=== PATIENT | female | born 1960 | race Caucasian/White ===

== ENCOUNTER 2016-05-02 01:12 | Emergency (ER) | payer MEDICARE ==
[2016-05-02 01:30] VITALS: O2SAT 96
[2016-05-02] MEDS ORDERED: Phenergan 25 MG INJ IM ONE (01:34)
[2016-05-02] MEDS ORDERED: Hydromorphone 1 mg/ml Ampule IM ONE (01:34)
[2016-05-02] MEDS ORDERED: Phenergan 25 MG INJ ONE (01:40)
--- NOTE | 2016-05-02 01:40 | ERPHSYRPT ---
- History of Present Illness Time Seen by Provider: 05/02/16 01:22 Source: patient Exam Limitations: no limitations Physician History: SINCE 04/29/16 PT HAS HAD A CONSTANT 10/10 THROBBING RIGHT SIDED HEADACHE WITH NAUSEA, VOMITING X3, PHOTOPHOBIA AND PHONOPHOBIA. PT'S NEUROLOGIST IS DR COX IN [place]. Allergies/Adverse Reactions: No Known Drug Allergies Allergy (Verified 06/11/14 19:57) Home Medications: Bupropion HCl [Wellbutrin Xl] 300 mg PO DAILY 03/02/14 [History] Butorphanol Tartrate 2 mg [Stadol 2 mg] 0 mg UD 03/02/14 [History] Omeprazole [Prilosec] 40 mg PO DAILY 03/02/14 [History] Torsemide [Demadex] 20 mg PO WEEKLY 03/02/14 [History] Gabapentin 600 mg PO QPM 06/11/14 [History] Hx Tetanus, Diphtheria Vaccination/Date Given: Yes (2012) Hx Influenza Vaccination/Date Given: No Hx Pneumococcal Vaccination/Date Given: No - Review of Systems Constitutional: No Fever Eyes: Photophobia Ears, Nose, & Throat: Other (PHONOPHOBIA) Respiratory: No Dyspnea Cardiac: No Chest Pain Abdominal/Gastrointestinal: Nausea, Vomiting, No Abdominal Pain Neurological: Headache Endocrine: No Excessive Sweating All Other Systems: Reviewed and Negative - Past Medical History Pertinent Past Medical History: Yes (sarcoidosis, migraine headaches) Cardiac History: Arrhythmia Respiratory History: Other Endocrine Medical History: Diabetes Type II Musculoskeletal History: Osteoarthritis, Rheumatoid Arthritis Other Medical History: SARCOIDOSIS - Past Surgical History Past Surgical History: Yes Neuro Surgical History: Neurological Surgery Cardiac: Cardiac Catheterization, Pacemaker Respiratory: Other Gastrointestinal: Cholecystectomy Female Surgical History: Section, Hysterectomy Other Surgical History: BRAIN SURGERY, PIECE OF LEFT LOWER LUNG REMOVAL, PACEMAKER PLACEMENT,LIVER BIOPSY, 3 ARM SURGERIES,6 PORTS PUT IN AND REMOVED. gastric bypassadhesion - Social History Smoking Status: Former smoker Exposure to second hand smoke: No Drug Use: none Patient Lives Alone: Yes - Female History Hx Now: No - Nursing Vital Signs Nursing Vital Signs: Initial Vital Signs Temperature 98.1 F Temperature Source Oral Pulse Rate 68 Respiratory Rate 16 Blood Pressure [Right Arm] 133/69 Pain Intensity 10 - Physical Exam General Appearance: moderate distress, alert Eye Exam: photophobia, other (EOMI) Ears, Nose, Throat Exam: TMs normal, pharynx normal, moist mucous membranes Neck Exam: normal inspection Respiratory Exam: lungs clear Cardiovascular Exam: normal heart sounds Gastrointestinal/Abdominal Exam: soft, normal bowel sounds Back Exam: normal range of motion Extremity Exam: normal inspection, normal range of motion Mental 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 POST-SURGICAL CHANGES IN THE LEFT FRONTAL-PARIETAL REGION. NO CT EVIDENCE OF DISCRETE MASS IDENTIFIED TO CORRESPOND TO HISTORY.) Ordered Tests: Active Orders 24 hr Category Date Time Status HEAD WITHOUT CONTRAST [CT] Stat Exams 05/02/16 01:34 Taken Medication Summary Discontinued Medications Generic Name Dose Route Start Last Admin Trade Name Iain PRN Reason Stop Dose Admin Hydromorphone HCl 2 mg 05/02/16 01:34 05/02/16 01:46 Dilaudid 1 Mg/Ml Injection IM 05/02/16 01:35 2 mg STAT ONE Administration Hydromorphone HCl Confirm 05/02/16 01:41 Dilaudid 1 Mg/Ml Injection Administered 05/02/16 01:42 Dose 2 mg .ROUTE .STK-MED ONE Promethazine HCl 25 mg 05/02/16 01:34 05/02/16 01:46 Phenergan 25 Mg Inj IM 05/02/16 01:35 25 mg STAT ONE Administration Promethazine HCl Confirm 05/02/16 01:40 Phenergan 25 Mg Inj Administered 05/02/16 01:41 Dose 25 mg .ROUTE .STK-MED ONE - Departure Time of Disposition: 03:06 Departure Disposition: Home Clinical Impression: MIGRAINE HEADACHE Condition: Fair Critical Care Time: No Instructions: Headache Additional Instructions: FOLLOW UP WITH PRIVATE DOCTOR TOMORROW.
[2016-05-02] MEDS ORDERED: Hydromorphone 1 mg/ml Ampule ONE (01:41)
[2016-05-02] MEDS ORDERED: TORAdol 30 mg Injection IM ONE (03:03)
[2016-05-02] MEDS ORDERED: TORAdol 30 mg Injection ONE (03:07)
[2016-05-02 03:45] VITALS: BP 110/81; PULSE 67
--- NOTE | 2016-05-02 09:00 | XRAY ---
Indication: Right frontal headache, dizziness, and right eye blurry vision. Multiple contiguous axial images obtained through the head without contrast. Comparison: November 15, 2009. Ventriculosulcal pattern appears symmetric. No acute intracranial hemorrhage, abnormal extra-axial fluid collection, or mass effect. Fourth ventricle is midline without hydrocephalus. Atkinson-white matter differentiation preserved. Bony calvarium intact again with left vertex craniotomy. Visualized paranasal sinuses and mastoid air cells are clear. Impression: No new/acute intracranial abnormalities. Comment: Preliminary interpretation was made by [facility]. No discrepancy. CTDI 67.99
== END 2016-05-02 03:40 | disposition home or self-care (01) ==
LOC: ED 01:12
DX: G43.909 Migraine, unspecified, not intractable, without status migrainosus (principal); R11.2 Nausea with vomiting, unspecified; H53.149 Visual discomfort, unspecified; R61 Generalized hyperhidrosis
CPT/HCPCS: 70450; 96372; 99283; J1170; J1885; J2550

== ENCOUNTER 2016-07-31 20:04 | Inpatient (IN) | payer MEDICARE ==
[2016-07-31] MEDS ORDERED: Sodium Chloride 0.9% 1000 ML 1,000 ML IV STA (20:23)
[2016-07-31] MEDS ORDERED: Hydromorphone 1 mg/ml Ampule IV ONE (20:23)
[2016-07-31] MEDS ORDERED: BENADRYL 50 MG/ML IV ONE (20:23)
[2016-07-31] MEDS ORDERED: Pepcid 20 MG VIAL IV ONE ×2 (20:23→20:27)
[2016-07-31] MEDS ORDERED: BENADRYL 50 MG/ML ONE (20:26)
[2016-07-31] MEDS ORDERED: Sodium Chloride 0.9% 1000 ML 1,000 ML ONE (20:27)
[2016-07-31] MEDS ORDERED: Hydromorphone 1 mg/ml Ampule ONE (20:27)
--- NOTE | 2016-07-31 20:31 | ERPHSYRPT ---
- History of Present Illness Time Seen by Provider: 07/31/16 20:16 Historian: patient Patient Subjective Stated Complaint: states that she ate at [employer] at 1200 and began to have RUQ abd pain intermittently with pressure - states that it began to radiate under the ribs - states that she feels like there is now constant pressure that is causing nausea - states that now she is having contractions-type pain Triage Nursing Assessment: ambulatory to treatment area - slow steady gait - moves all extremities with equal strength. alert/oriented - grimmacing affect. skin pwd - no rash/injury. resps easy - non-labored Physician History: CC: abd pain Hx: 55 y/o patient of Dr Cason with right sided abdominal pain since around 2PM. Ate [employer] at noon. Pain was intermittent but now more constant. Nausea without vomiting or diarrhea. No fever or chills. Normal urination. No cough or chest pain. She had prior cholecystectomy, hysterectomy, and gastric bypass. Timing/Duration: today Severity of Pain-Max: moderate Severity of Pain-Current: moderate Allergies/Adverse Reactions: No Known Drug Allergies Allergy (Verified 07/31/16 20:09) Home Medications: Bupropion HCl [Wellbutrin Xl] 300 mg PO DAILY 03/02/14 [History] Butorphanol Tartrate 2 mg [Stadol 2 mg] 0 mg UD 03/02/14 [History] Omeprazole [Prilosec] 40 mg PO DAILY 03/02/14 [History] Gabapentin 600 mg PO QPM 06/11/14 [History] Hx Tetanus, Diphtheria Vaccination/Date Given: Yes Hx Influenza Vaccination/Date Given: No Hx Pneumococcal Vaccination/Date Given: No Immunizations Up to Date: Yes - Review of Systems Constitutional: No Fever, No Chills Eyes: No Symptoms Ears, Nose, & Throat: No Symptoms Respiratory: No Cough Cardiac: No Chest Pain Abdominal/Gastrointestinal: Abdominal Pain, Nausea, No Vomiting, No Diarrhea Genitourinary Symptoms: No Dysuria, No Hematuria, No Flank Pain Skin: No Rash Neurological: No Symptoms All Other Systems: Reviewed and Negative - Past Medical History Pertinent Past Medical History: Yes (sarcoidosis, migraine headaches) Cardiac History: Arrhythmia Respiratory History: Other Endocrine Medical History: Diabetes Type II Musculoskeletal History: Osteoarthritis, Rheumatoid Arthritis GI Medical History: Esophageal Disorder Other Medical History: SARCOIDOSIS - WEAVER'S ESOPHAGOUS - Past Surgical History Past Surgical History: Yes Neuro Surgical History: Neurological Surgery Cardiac: Cardiac Catheterization, Pacemaker Respiratory: Other Gastrointestinal: Cholecystectomy Female Surgical History: Section, Hysterectomy Other Surgical History: BRAIN SURGERY, PIECE OF LEFT LOWER LUNG REMOVAL, PACEMAKER PLACEMENT,LIVER BIOPSY, 3 ARM SURGERIES,6 PORTS PUT IN AND REMOVED. gastric bypassadhesion - Social History Smoking Status: Never smoker Exposure to second hand smoke: No Drug Use: none Patient Lives Alone: No - Female History Hx Last Menstrual Period: n/a Hx Now: No - Nursing Vital Signs Nursing Vital Signs: Initial Vital Signs Temperature 99.4 F Temperature Source Oral Pulse Rate 70 Respiratory Rate 14 Blood Pressure [Right Arm] 99/50 Pain Intensity 0 - Physical Exam General Appearance: alert, other (pleasant lady) Eye Exam: PERRL/EOMI Ears, Nose, Throat Exam: normal ENT inspection, moist mucous membranes Neck Exam: normal inspection, non-tender, supple Respiratory Exam: normal breath sounds, lungs clear Cardiovascular Exam: regular rate/rhythm Gastrointestinal/Abdomen Exam: soft, tenderness (right mid and lower abdomen), guarding, No mass Back Exam: normal inspection, No CVA tenderness Extremity Exam: normal inspection, normal range of motion Neurologic Exam: alert, oriented x 3, 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, 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, sensation nml, No motor deficits Skin Exam: warm, dry, No rash SpO2 Interpretation: normal SpO2: 98 Oxygen Delivery: Room Air - Course Nursing assessment & vital signs reviewed: Yes EKG Interpreted by Me: RATE (66), Other (atrial pacemaker) Ordered Tests: Active Orders 24 hr Category Date Time Status Clean Catch Urine Specimen STAT Care 07/31/16 20:23 Active EKG-ER Only STAT Care 07/31/16 20:23 Active IV Insertion STAT Care 07/31/16 20:23 Active NPO (ED) STAT Care 07/31/16 20:23 Active ABDOMEN AND PELVIS W CONTRAST [CT] Stat Exams 07/31/16 20:23 Taken CBC W DIFF Stat Lab 07/31/16 20:30 Completed CMP Stat Lab 07/31/16 20:30 Completed CULTURE,URINE Stat Lab 07/31/16 20:20 Received LIPASE Stat Lab 07/31/16 20:30 Completed Lactic Acid Urgent Lab 07/31/16 20:23 Completed Manual Differential NC Stat Lab 07/31/16 20:30 Completed UA W/ MICROSCOPIC Stat Lab 07/31/16 20:15 Completed Medication Summary Discontinued Medications Generic Name Dose Route Start Last Admin Trade Name Iain PRN Reason Stop Dose Admin Diphenhydramine HCl 25 mg 07/31/16 20:23 07/31/16 20:32 Benadryl 50 Mg/Ml IV 07/31/16 20:24 25 mg STAT ONE Administration Diphenhydramine HCl Confirm 07/31/16 20:26 Benadryl 50 Mg/Ml Administered 07/31/16 20:27 Dose 50 mg .ROUTE .STK-MED ONE Famotidine 20 mg 07/31/16 20:23 07/31/16 20:32 Pepcid 20 Mg Vial IV 07/31/16 20:24 20 mg STAT ONE Administration Famotidine Confirm 07/31/16 20:27 Pepcid 20 Mg Vial Administered 07/31/16 20:28 Dose 20 mg IV .STK-MED ONE Hydromorphone HCl 1 mg 07/31/16 20:23 07/31/16 20:33 Hydromorphone 1 Mg/Ml Ampule IV 07/31/16 20:24 1 mg STAT ONE Administration Hydromorphone HCl Confirm 07/31/16 20:27 Hydromorphone 1 Mg/Ml Ampule Administered 07/31/16 20:28 Dose 1 mg .ROUTE .STK-MED ONE Sodium Chloride 1,000 mls @ 999 mls/hr 07/31/16 20:23 07/31/16 20:33 Sodium Chloride 0.9% 1000 Ml IV 07/31/16 21:23 999 mls/hr .Q1H1M STA Administration Sodium Chloride Confirm 07/31/16 20:27 Sodium Chloride 0.9% 1000 Ml Administered 07/31/16 20:28 Dose 1,000 mls @ ud .ROUTE .STK-MED ONE Ondansetron HCl 4 mg 07/31/16 21:36 07/31/16 21:41 Zofran 4 Mg/2 Ml Vial IV 07/31/16 21:37 4 mg STAT ONE Administration Ondansetron HCl Confirm 07/31/16 21:39 Zofran 4 Mg/2 Ml Vial Administered 07/31/16 21:40 Dose 4 mg .ROUTE .STK-MED ONE Lab/Rad Data: Laboratory Result Diagrams 07/31/16 20:30 07/31/16 20:30 Laboratory Results 07/31/16 07/31/16 07/31/16 Range/Units 20:30 20:30 20:23 WBC 5.7 (4.0-10.5) K/mm3 RBC 4.31 (4.1-5.4) M/mm3 Hgb 12.6 (12.0-16.0) gm/dl Hct 38.7 (35-47) % MCV 89.8 (78-100) fl MCH 29.2 (26-32) pg MCHC 32.6 (32-36) g/dl RDW 13.3 (11.5-14.0) % Plt Count 176 (150-450) K/mm3 MPV 9.6 H (6-9.5) fl Segmented Neutrophils 85 H (36.0-66.0) % Lymphocytes (Manual) 8 L (24-44) % Monocytes (Manual) 5 (0.0-12.0) % Eosinophils (Manual) 2 (0.00-3.0) % Differential Comment NORMAL Platelet Estimate NORMAL (NORMAL) Sodium 142 (136-145) mEq/L Potassium 4.5 (3.5-5.1) mEq/L Chloride 105 (98-107) mEq/L Carbon Dioxide 27.0 (21-32) mEq/L Anion Gap 14.1 (5-15) MEQ/L BUN 19 (9-20) mg/dL Creatinine 0.80 (0.55-1.30) mg/dl Estimated GFR > 60 ML/MIN Glucose 93 (70-110) MG/DL Lactic Acid 0.7 (0.4-2.0) Calcium 8.3 L (8.5-10.1) mg/dL Total Bilirubin 0.6 (0.2-1.0) mg/dL AST 315 H (15-37) U/L ALT 119 H (12-78) U/L Alkaline Phosphatase 133 H (46-116) U/L Serum Total Protein 7.1 (6.4-8.2) gm/dL Albumin 3.6 (3.4-5.0) g/dL Lipase 255 (73-393) U/L Ur Collection Type Urine Color (YELLOW) Urine Appearance (CLEAR) Urine pH (5-6) Ur Specific [place] (1.005-1.025) Urine Protein (Negative) Urine Glucose (UA) (NEGATIVE) mg/dL Urine Ketones (NEGATIVE) Urine Nitrite (NEGATIVE) Urine Bilirubin (NEGATIVE) Urine Urobilinogen (0-1) mg/dL Urine WBC (Auto) (NEGATIVE) Urine RBC (Auto) (0-5) Chema/ul Urine Microscopic WBC (0-5) /HPF Ur Epithelial Cells (FEW) /HPF Urine Bacteria (NEGATIVE) /HPF Specimen Received 07/31/16 Range/Units 20:15 WBC (4.0-10.5) K/mm3 RBC (4.1-5.4) M/mm3 Hgb (12.0-16.0) gm/dl Hct (35-47) % MCV (78-100) fl MCH (26-32) pg MCHC (32-36) g/dl RDW (11.5-14.0) % Plt Count (150-450) K/mm3 MPV (6-9.5) fl Segmented Neutrophils (36.0-66.0) % Lymphocytes (Manual) (24-44) % Monocytes (Manual) (0.0-12.0) % Eosinophils (Manual) (0.00-3.0) % Differential Comment Platelet Estimate (NORMAL) Sodium (136-145) mEq/L Potassium (3.5-5.1) mEq/L Chloride (98-107) mEq/L Carbon Dioxide (21-32) mEq/L Anion Gap (5-15) MEQ/L BUN (9-20) mg/dL Creatinine (0.55-1.30) mg/dl Estimated GFR ML/MIN Glucose (70-110) MG/DL Lactic Acid (0.4-2.0) Calcium (8.5-10.1) mg/dL Total Bilirubin (0.2-1.0) mg/dL AST (15-37) U/L ALT (12-78) U/L Alkaline Phosphatase (46-116) U/L Serum Total Protein (6.4-8.2) gm/dL Albumin (3.4-5.0) g/dL Lipase (73-393) U/L Ur Collection Type CLEAN CATCH Urine Color YELLOW (YELLOW) Urine Appearance SLIGHTLY CLOUDY (CLEAR) Urine pH 5.5 (5-6) Ur Specific [place] 1.025 (1.005-1.025) Urine Protein NEGATIVE (Negative) Urine Glucose (UA) NEGATIVE (NEGATIVE) mg/dL Urine Ketones NEGATIVE (NEGATIVE) Urine Nitrite POSITIVE (NEGATIVE) Urine Bilirubin NEGATIVE (NEGATIVE) Urine Urobilinogen 0.2 (0-1) mg/dL Urine WBC (Auto) TRACE (NEGATIVE) Urine RBC (Auto) NEGATIVE (0-5) Chema/ul Urine Microscopic WBC 2-5 (0-5) /HPF Ur Epithelial Cells FEW (FEW) /HPF Urine Bacteria PACKED (NEGATIVE) /HPF Specimen Received 07/31/16:2020 - Progress Progress Note: 07/31/16 20:[address] to rule out appendicitis or perforated ulcer. 07/31/16 22:21 CT abd/pelvis: [email or web address] 9:56 PM 07/31/2016: Compared to 04/15/14. Stable small HH, gastric bypass sx, B/L adrenal adenomas w / calcifications, cholecystectomy w/ prominent biliary tree, nonobstructing R renal stone, small L renal cyst, small fatty umbilical hernia, & multilevel lumbar hemangiomas. No new/acute findings. 07/31/16 23:33 Ptambulated. Holding right abd. She has profound nausea. CT reassuring. She states liver enzymes always high as a result of sarcoid. She agrees for obs. Spoke to Dr Cason. Will see patient in: hospital (observation) Counseled pt/family regarding: lab results, diagnosis, need for follow-up, rad results - Departure Time of Disposition: 23:34 Departure Disposition: Observation Clinical Impression: RLQ abdominal pain, Hx of sarcoidosis Condition: Stable Critical Care Time: No Referrals: KUNAL CASON MD [Primary Care Provider] -
[2016-07-31 20:39] LABS: Mean Cell Volume 89.8 fl (78-100); Mean Corpuscular Hemoglobin 29.2 pg (26-32); Mean Platelet Volume 9.6 fl (6-9.5); Platelet Count 176 K/mm3 (150-450); Red Blood Count 4.31 M/mm3 (4.1-5.4); Red Cell Distribution Width 13.3 % (11.5-14.0); White Blood Count 5.7 K/mm3 (4.0-10.5)
[2016-07-31 20:48] LABS: Bacteria PACKED /HPF (NEGATIVE); COMPLETE URINE MICROSCOPIC? YES; Collection Type CLEAN CATCH; Epithelial Cells FEW /HPF (FEW); Ph 5.5 (5-6)
[2016-07-31 21:03] LABS: ALBUMIN 3.6 g/dL (3.4-5.0); ALKALINE PHOSPHATASE 133 U/L (46-116); ANION GAP 14.1 MEQ/L (5-15); BILIRUBIN,TOTAL 0.6 mg/dL (0.2-1.0); BLOOD UREA NITROGEN 19 mg/dL (9-20); CHLORIDE 105 mEq/L (98-107); Glucose 93 MG/DL (70-110); LIPASE 255 U/L (73-393); Potassium 4.5 mEq/L (3.5-5.1); SGOT/AST 315 U/L (15-37); SGPT/ALT 119 U/L (12-78); SODIUM 142 mEq/L (136-145); Total Protein 7.1 gm/dL (6.4-8.2)
[2016-07-31] MEDS ORDERED: Zofran 4 MG/2 ML VIAL IV ONE (21:36)
[2016-07-31] MEDS ORDERED: Zofran 4 MG/2 ML VIAL ONE (21:39)
[2016-07-31 22:39] LABS: Eosinophil 2 % (0.00-3.0); Platelet Estimate NORMAL (NORMAL); Total Cells Counted 100
[2016-08-01] MEDS ORDERED: DILAUDID 2 MG INJECTION IV PRN (00:14)
[2016-08-01] MEDS: Dextrose 5%-Lr IV Solution 1000 ML 1,000 ML IV SCH ×3 (00:30→21:52)
[2016-08-01] MEDS: Zofran 4 MG/2 ML VIAL IV PRN ×2 (00:30→10:31)
[2016-08-01] MEDS: DILAUDID 2 MG INJECTION IV PRN ×4 (02:25→21:50)
[2016-08-01 05:54] LABS: Mean Cell Volume 90.6 fl (78-100); Mean Corpuscular Hemoglobin 29.5 pg (26-32); Mean Platelet Volume 9.9 fl (6-9.5); Platelet Count 156 K/mm3 (150-450); Red Blood Count 3.83 M/mm3 (4.1-5.4); Red Cell Distribution Width 13.3 % (11.5-14.0)
[2016-08-01 06:23] LABS: White Blood Count 1.5 K/mm3 (4.0-10.5)
[2016-08-01 07:34] LABS: Mean Cell Volume 89.8 fl (78-100); Mean Corpuscular Hemoglobin 29.5 pg (26-32); Mean Platelet Volume 9.8 fl (6-9.5); Platelet Count 135 K/mm3 (150-450); Red Blood Count 3.83 M/mm3 (4.1-5.4); Red Cell Distribution Width 13.3 % (11.5-14.0)
[2016-08-01 07:37] LABS: White Blood Count 1.6 K/mm3 (4.0-10.5)
[2016-08-01 07:40] LABS: ALBUMIN 3.2 g/dL (3.4-5.0); BLOOD UREA NITROGEN 14 mg/dL (9-20); CHLORIDE 104 mEq/L (98-107); Carbon Dioxide 27.1 mEq/L (21-32); Glucose 125 MG/DL (70-110); Potassium 4.1 mEq/L (3.5-5.1); SODIUM 139 mEq/L (136-145); Total Protein 6.5 gm/dL (6.4-8.2)
[2016-08-01 07:41] LABS: ALKALINE PHOSPHATASE 205 U/L (46-116); ANION GAP 27.1 MEQ/L (5-15); BILIRUBIN,TOTAL 0.5 mg/dL (0.2-1.0); SGOT/AST 1621 U/L (15-37); SGPT/ALT 891 U/L (12-78)
--- NOTE | 2016-08-01 08:38 | XRAY ---
Indication: Right upper quadrant abdominal pain/pressure. Multiple contiguous axial images obtained through the abdomen and pelvis using 80 cc Isovue 370 contrast only. Comparison: April 15, 2014. Lung bases again demonstrates minimal bibasilar dependent atelectasis. Heart is not enlarged. Stable small hiatal hernia. Again previous gastric bypass surgery, cholecystectomy, and hysterectomy. Noncontrasted stomach and bowel loops appear nonobstructed. No free fluid/air. Stable minimal colonic diverticulosis, biliary tree prominence, bilateral adrenal adenomas with calcifications, nonobstructing right renal calculus, small left renal cyst, tiny mesenteric/periaortic lymph nodes, and small fatty umbilical hernia. Remaining liver, pancreas, spleen, kidneys, ureters, bladder, and aorta appear unremarkable. Osseous structures intact again with multilevel lumbar vertebral hemangiomas. Impression: 1. Stable hiatal hernia, cholecystectomy with prominent biliary tree, calcified bilateral adrenal adenomas, colonic diverticulosis, nonobstructing right renal calculus, left renal cyst, tiny mesenteric/periaortic nodes, lumbar vertebral hemangiomas, and fatty umbilical hernia. 2. No new/acute intra-abdominal/pelvic abnormalities. CTDI 23.47
[2016-08-01 10:17] LABS: BAND 1 % (0.0-2.0); Platelet Estimate NORMAL (NORMAL); Total Cells Counted 100
[2016-08-01] MEDS: Pepcid 20 MG VIAL IV SCH ×2 (10:26→21:48)
[2016-08-01] MEDS ORDERED: Nitrostat 0.4 MG Tablet SL PRN (11:30)
[2016-08-01] MEDS ORDERED: NON-FORMULARY ITEM (Omeprazole [Prilosec] 40 MG) PO PRN (11:30)
[2016-08-01] MEDS ORDERED: Protonix 40MG Tablet PO PRN (11:47)
[2016-08-01] MEDS ORDERED: Zanaflex 4 MG PO SCH (12:00)
[2016-08-01] MEDS: Wellbutrin XL 150 MG PO SCH (13:02)
--- NOTE | 2016-08-01 13:20 | PCM.HP ---
History of Present Illness - Chief Complaint Chief Complaint: RLQ abdominal pain for 1 day History of Present Illness: is a 55 year old female.55 y/o patient of Dr Mathew with right sided abdominal pain since around 2PM. Ate veggie sub at noon. Pain was intermittent but now more constant. Nausea without vomiting or diarrhea. No fever or chills. Normal urination. No cough or chest pain. She had prior cholecystectomy, hysterectomy, and gastric bypass. Timing/Duration: today Severity of Pain-Max: moderate Severity of Pain-Current: moderate - Review of Systems Constitutional: No Fever, No Chills Eyes: No Symptoms Ears, Nose, & Throat: No Symptoms Respiratory: No Cough, No Short Of Breath Cardiac: No Chest Pain, No Edema, No Syncope Abdominal/Gastrointestinal: Abdominal Pain, Nausea, No Vomiting, No Diarrhea Genitourinary Symptoms: No Dysuria Musculoskeletal: No Back Pain, No Neck Pain Skin: No Rash Neurological: No Dizziness, No Focal Weakness, No Sensory Changes Psychological: No Symptoms Endocrine: No Symptoms Hematologic/Lymphatic: No Symptoms Immunological/Allergic: No Symptoms Medications & Allergies Home Medications: Home Medication List Bupropion HCl [Wellbutrin Xl] 300 mg PO DAILY 03/02/14 [History Confirmed ] Omeprazole [Prilosec] 40 mg PO BID PRN 03/02/14 [History Confirmed 08/01/16] Nitroglycerin 0.4 mg Tablet [Nitrostat 0.4 MG Tablet] 1 tab PO UD PRN [History Confirmed 08/01/16] Oxcarbazepine 300 mg [Trileptal 300 MG Tablet] 600 mg PO TID 08/01/16 [ History Confirmed 08/01/16] Tizanidine HCl 4 mg [Zanaflex 4 MG] 4 mg PO HS 08/01/16 [History Confirmed 08/01/16] Allergies/Adverse Reactions: Allergies Allergy/AdvReac Type Severity Reaction Status Date / Time No Known Drug Allergies Allergy Verified 07/31/16 20:09 - Past Medical History Past Medical History: Yes (sarcoidosis, migraine headaches) Cardiac History: Arrhythmia Respiratory History: Other Endocrine Medical History: Diabetes Type II Musculoskelatal History: Osteoarthritis, Rheumatoid Arthritis GI Medical History: Esophageal Disorder Comment: SARCOIDOSIS - WEAVER'S ESOPHAGOUS - Female History Hx Last Menstrual Period: n/a Are you now?: No - Past Surgical History Past Surgical History: Yes Neuro Surgical History: Neurological Surgery Cardiac History: Cardiac Catheterization, Pacemaker Respiratory Surgery: Other GI Surgical History: Cholecystectomy Female Surgical History: Section, Hysterectomy Other Surgical History: BRAIN SURGERY, PIECE OF LEFT LOWER LUNG REMOVAL, PACEMAKER PLACEMENT,LIVER BIOPSY, 3 ARM SURGERIES,6 PORTS PUT IN AND REMOVED. gastric bypassadhesion - Social History Smoking Status: Former smoker Exposure to second hand smoke: Yes Alcohol: None Drug Use: none - Physical Exam Vital Signs: Vital Signs - 24 hr Temp Pulse Resp BP Pulse Ox 08/01/16 12:00 97.8 F 71 20 121/77 91 L 08/01/16 07:57 98.5 F 67 18 133/62 90 L 08/01/16 04:00 98.5 F 67 18 115/62 94 L 08/01/16 00:34 98.2 F 69 20 127/78 96 07/31/16 23:34 98 07/31/16 23:31 70 14 99/50 98 07/31/16 23:06 71 14 112/66 96 07/31/16 22:01 68 18 115/71 98 07/31/16 21:37 72 124/72 98 07/31/16 21:09 72 18 123/85 98 07/31/16 20:13 99.4 F 70 16 134/85 98 General Appearance: no apparent distress, alert Neurologic Exam: alert, oriented x 3, cooperative, normal mood/affect, nml cerebellar function, nml station & gait, sensation nml, No motor deficits Eye Exam: PERRL/EOMI, eyes nml inspection Ears, Nose, Throat Exam: normal ENT inspection, TMs normal, pharynx normal, moist mucous membranes Neck Exam: normal inspection, non-tender, supple, full range of motion Respiratory Exam: normal breath sounds, lungs clear, No respiratory distress Cardiovascular Exam: regular rate/rhythm, normal heart sounds, normal peripheral pulses Gastrointestinal/Abdomen Exam: soft, normal bowel sounds, No tenderness, No mass Back Exam: normal inspection, normal range of motion, No CVA tenderness, No vertebral tenderness Extremity Exam: normal inspection, normal range of motion, pelvis stable Skin Exam: normal color, warm, dry, No rash Lymphatic Exam: No adenopathy Results - Labs Lab/Micro Results: Lab Results-Last 24 Hours 08/01/16 08/01/16 08/01/16 Range/Units 05:18 05:18 07:29 WBC 1.5 L* 1.6 L* (4.0-10.5) K/mm3 RBC 3.83 L 3.83 L (4.1-5.4) M/mm3 Hgb 11.3 L 11.3 L (12.0-16.0) gm/dl Hct 34.7 L 34.4 L (35-47) % MCV 90.6 89.8 (78-100) fl MCH 29.5 29.5 (26-32) pg MCHC 32.6 32.8 (32-36) g/dl RDW 13.3 13.3 (11.5-14.0) % Plt Count 156 135 L (150-450) K/mm3 MPV 9.9 H 9.8 H (6-9.5) fl Segmented Neutrophils 65 (36.0-66.0) % Band Neutrophils 1 (0.0-2.0) % Lymphocytes (Manual) 29 (24-44) % Monocytes (Manual) 5 (0.0-12.0) % Differential Comment NORMAL Platelet Estimate NORMAL (NORMAL) Smear Path Review Pending Sodium 139 (136-145) mEq/L Potassium 4.1 (3.5-5.1) mEq/L Chloride 104 (98-107) mEq/L Carbon Dioxide 27.1 (21-32) mEq/L Anion Gap 27.1 H (5-15) MEQ/L BUN 14 (9-20) mg/dL Creatinine 0.81 (0.55-1.30) mg/dl Estimated GFR > 60 ML/MIN Glucose 125 H (70-110) MG/DL Calcium 8.0 L (8.5-10.1) mg/dL Total Bilirubin 0.5 (0.2-1.0) mg/dL AST 1621 H (15-37) U/L ALT 891 H (12-78) U/L Alkaline Phosphatase 205 H (46-116) U/L Serum Total Protein 6.5 (6.4-8.2) gm/dL Albumin 3.2 L (3.4-5.0) g/dL Assessment/Plan (1) Hepatitis Current Visit: Yes Status: Acute Assessment & Plan: will continue IV fluids, pain management, clear liquid (2) RLQ abdominal pain Current Visit: Yes Status: Acute
[2016-08-01] MEDS ORDERED: Phenergan 25 MG INJ IV PRN (13:47)
[2016-08-01] MEDS: Trileptal 300 MG Tablet PO SCH ×2 (15:19→21:49)
[2016-08-01 15:48] LABS: Collection Type CCMS
[2016-08-01 15:49] LABS: COMPLETE URINE MICROSCOPIC? YES
[2016-08-01] MEDS: Zanaflex 4 MG PO SCH (21:45)
[2016-08-02] MEDS: DILAUDID 2 MG INJECTION IV PRN ×2 (05:26→18:43)
[2016-08-02 06:11] LABS: ALKALINE PHOSPHATASE 187 U/L (46-116); ANION GAP 11.5 MEQ/L (5-15); BILIRUBIN,TOTAL 0.4 mg/dL (0.2-1.0); BLOOD UREA NITROGEN 9 mg/dL (9-20); CHLORIDE 105 mEq/L (98-107); Glucose 107 MG/DL (70-110); Potassium 3.8 mEq/L (3.5-5.1); SGOT/AST 381 U/L (15-37); SGPT/ALT 540 U/L (12-78); SODIUM 140 mEq/L (136-145); Total Protein 6.2 gm/dL (6.4-8.2)
[2016-08-02 07:20] LABS: INR 1.1 (0.8-3.0); PROTIME 12.3 SECONDS (9.95-12.35)
[2016-08-02 07:22] LABS: PTT 25.4 SECONDS (25.3-37.0)
[2016-08-02] MEDS: Pepcid 20 MG VIAL IV SCH ×2 (08:00→22:03)
[2016-08-02] MEDS: ZOFRAN ODT 4 MG PO PRN (08:07)
[2016-08-02] MEDS ORDERED: ZOFRAN ODT 4 MG PO PRN (09:10)
[2016-08-02] MEDS ORDERED: Dilaudid 4 MG Tab PO PRN (09:10)
[2016-08-02] MEDS ORDERED: NON-FORMULARY ITEM (Bupropion Hcl [Wellbutrin Xl] 300 MG) PO SCH (10:00)
[2016-08-02] MEDS: Wellbutrin XL 150 MG PO SCH (10:56)
[2016-08-02] MEDS: Trileptal 300 MG Tablet PO SCH ×3 (10:57→22:03)
--- NOTE | 2016-08-02 11:42 | PCM.NOTE ---
Date and Time: 08/02/16 1140 Subjective Assessment: c/o abdominal pain, nausea and vomiting - Review of Systems Constitutional: No Fever, No Chills Eyes: No Symptoms Ears, Nose, & Throat: No Symptoms Respiratory: No Cough, No Short Of Breath Cardiac: No Chest Pain, No Edema, No Syncope Abdominal/Gastrointestinal: No Abdominal Pain, No Nausea, No Vomiting, No Diarrhea Genitourinary Symptoms: No Dysuria Musculoskeletal: No Back Pain, No Neck Pain Skin: No Rash Neurological: No Dizziness, No Focal Weakness, No Sensory Changes Psychological: No Symptoms Endocrine: No Symptoms Hematologic/Lymphatic: No Symptoms Immunological/Allergic: No Symptoms Objective Exam General Appearance: no apparent distress, alert Neurologic Exam: alert, oriented x 3, cooperative, normal mood/affect, nml cerebellar function, sensation nml, No motor deficits Skin Exam: normal color, warm, dry Eye Exam: PERRL, EOMI, eyes nml inspection Ears, Nose, Throat Exam: normal ENT inspection, pharynx normal, moist mucous membranes Neck Exam: normal inspection, non-tender, supple, full range of motion Respiratory Exam: normal breath sounds, lungs clear, No respiratory distress Cardiovascular Exam: regular rate/rhythm, normal heart sounds Gastrointestinal/Abdomen Exam: soft, No tenderness, No mass Extremity Exam: normal inspection, normal range of motion Back Exam: normal inspection, normal range of motion, No CVA tenderness, No vertebral tenderness Pelvic Exam: deferred Rectal Exam: deferred OBJECTIVE DATA Vital Signs: Vital Signs - 24 hr Temp Pulse Resp BP Pulse Ox 08/02/16 11:33 97.6 F 78 18 110/61 94 L 08/02/16 07:41 98.4 F 70 18 99/52 95 08/02/16 04:00 98.4 F 70 20 109/68 95 08/02/16 00:00 98.3 F 68 17 132/62 94 L 08/01/16 20:00 97.3 F 69 18 120/76 96 08/01/16 16:00 98 F 75 20 114/73 94 L 08/01/16 12:00 97.8 F 71 20 121/77 91 L Pain Assessment - Last Documented Pain Intensity 4 Pain Scale Used 0-10 Pain Scale Intake and Output: Intake & Output 07/30/16 07/31/16 08/01/16 08/02/16 11:59 11:59 11:59 11:59 Intake Total 311 2456 Output Total 400 700 Balance -89 1756 Weight 106.685 kg Lab Results: Lab Results-Last 24 Hours 08/01/16 08/01/16 08/02/16 Range/Units 13:33 13:40 05:00 INR 1.10 (0.8-3.0) PTT 25.4 (25.3-37.0) SECONDS Sodium (136-145) mEq/L Potassium (3.5-5.1) mEq/L Chloride (98-107) mEq/L Carbon Dioxide (21-32) mEq/L Anion Gap (5-15) MEQ/L BUN (9-20) mg/dL Creatinine (0.55-1.30) mg/dl Estimated GFR ML/MIN Glucose (70-110) MG/DL Calcium (8.5-10.1) mg/dL Total Bilirubin (0.2-1.0) mg/dL AST (15-37) U/L ALT (12-78) U/L Alkaline Phosphatase (46-116) U/L Serum Total Protein (6.4-8.2) gm/dL Albumin (3.4-5.0) g/dL Ur Collection Type Cancelled CCMS Urine Color Cancelled TARYN Urine Appearance Cancelled CLEAR Urine pH Cancelled 5.0 Ur Specific [place] Cancelled 1.020 Urine Protein Cancelled 30 Urine Glucose (UA) Cancelled NEGATIVE Urine Ketones Cancelled NEGATIVE Urine Nitrite Cancelled POSITIVE Urine Bilirubin Cancelled SMALL Urine Urobilinogen Cancelled 1 Urine WBC (Auto) Cancelled NEGATIVE Urine RBC (Auto) Cancelled SMALL Specimen Received Cancelled 08/01 149908/02/16 Range/Units 05:33 INR (0.8-3.0) PTT (25.3-37.0) SECONDS Sodium 140 (136-145) mEq/L Potassium 3.8 (3.5-5.1) mEq/L Chloride 105 (98-107) mEq/L Carbon Dioxide 27.0 (21-32) mEq/L Anion Gap 11.5 (5-15) MEQ/L BUN 9 (9-20) mg/dL Creatinine 0.73 (0.55-1.30) mg/dl Estimated GFR > 60 ML/MIN Glucose 107 (70-110) MG/DL Calcium 8.2 L (8.5-10.1) mg/dL Total Bilirubin 0.4 (0.2-1.0) mg/dL AST 381 H (15-37) U/L ALT 540 H (12-78) U/L Alkaline Phosphatase 187 H (46-116) U/L Serum Total Protein 6.2 L (6.4-8.2) gm/dL Albumin 3.0 L (3.4-5.0) g/dL Ur Collection Type Urine Color Urine Appearance Urine pH Ur Specific [place] Urine Protein Urine Glucose (UA) Urine Ketones Urine Nitrite Urine Bilirubin Urine Urobilinogen Urine WBC (Auto) Urine RBC (Auto) Specimen Received Assessment/Plan (1) Hepatitis Current Visit: Yes Status: Acute (2) RLQ abdominal pain Current Visit: Yes Status: Acute (3) Nausea and vomiting Current Visit: Yes Status: Acute Qualifiers: Vomiting type: unspecified Vomiting Intractability: non-intractable Qualified Code(s): R11.2 - Nausea with vomiting, unspecified Code(s): R11.2 - NAUSEA WITH VOMITING, UNSPECIFIED
[2016-08-02] MEDS ORDERED: HEPARIN-NS 1,000 UNITS/500 ML IV ONE (12:04)
--- NOTE | 2016-08-02 13:19 | XRAY ---
Indication: Ultrasound guidance for PICC line placement. Initial sonographic imaging of the right upper extremity was performed for localization of patent veins. A patent basilic vein identified above the elbow. Ultrasound guidance was then used for PICC line insertion. Full PICC line insertion is reported separately.
--- NOTE | 2016-08-02 13:25 | XRAY ---
Indication: Long-term IV access and therapy for dehydration. Difficulty obtaining IV access. Informed consent obtained. Patient was placed on the fluoroscopic table in a supine position. Initial sonographic imaging of the right upper extremity was performed for localization of patent veins. The right upper extremity was then prepped and draped in sterile fashion. Tourniquet applied. 1% lidocaine plain used for local anesthesia. Using ultrasound guidance and a micropuncture needle, a basilic vein above the elbow was successfully percutaneously cannulized. A floppy tip 0.018 guidewire inserted. Tourniquet released. Needle was exchanged for a 5 Malay dilator peel-away sheath catheter. Ultimately a 5 Malay double-lumen PICC line was inserted over a longer 0.018 guidewire with the tip positioned in the distal SVC using fluoroscopic guidance. Guidewire removed. Both ports flushed with heparinized saline. Catheter was secured. Postoperative instructions and orders given. Patient discharged in good condition. Impression: Technically successful right upper extremity PICC line placement using ultrasound and fluoroscopic guidance. No immediate complications. Approximately 5 cc blood loss. Approximately 1.7 minute of fluoroscopy used.
[2016-08-02] MEDS ORDERED: Phenergan 25 MG INJ IV PRN (14:07)
[2016-08-02] MEDS ORDERED: Zofran 4 MG/2 ML VIAL IV PRN (14:09)
[2016-08-02] MEDS: Zanaflex 4 MG PO SCH (22:06)
[2016-08-02] MEDS: Dextrose 5%-Lr IV Solution 1000 ML 1,000 ML IV SCH (22:11)
[2016-08-03] MEDS: DILAUDID 2 MG INJECTION IV PRN ×4 (02:55→20:56)
[2016-08-03 07:15] LABS: HEPATITIS B VIRUS CORE TOT AB Reactive (Non Reactive)
[2016-08-03] MEDS: Wellbutrin XL 150 MG PO SCH (08:40)
[2016-08-03] MEDS: Trileptal 300 MG Tablet PO SCH ×3 (08:40→22:01)
[2016-08-03] MEDS: Pepcid 20 MG VIAL IV SCH ×2 (08:41→22:01)
[2016-08-03] MEDS: Dextrose 5%-Lr IV Solution 1000 ML 1,000 ML IV SCH ×2 (08:45→22:00)
[2016-08-03 09:54] LABS: Mean Platelet Volume 10.1 fl (6-9.5); Platelet Count 143 K/mm3 (150-450); Red Blood Count 3.76 M/mm3 (4.1-5.4); Red Cell Distribution Width 13.4 % (11.5-14.0); White Blood Count 2.7 K/mm3 (4.0-10.5)
[2016-08-03 09:59] LABS: Mean Corpuscular Hemoglobin 29.7 pg (26-32)
[2016-08-03 11:20] LABS: ALBUMIN 3.1 g/dL (3.4-5.0); ALKALINE PHOSPHATASE 162 U/L (46-116); ANION GAP 11.4 MEQ/L (5-15); BILIRUBIN,TOTAL 0.3 mg/dL (0.2-1.0); BLOOD UREA NITROGEN 8 mg/dL (9-20); CHLORIDE 105 mEq/L (98-107); Carbon Dioxide 30.6 mEq/L (21-32); Glucose 107 MG/DL (70-110); Potassium 3.4 mEq/L (3.5-5.1); SGOT/AST 119 U/L (15-37); SGPT/ALT 352 U/L (12-78); SODIUM 144 mEq/L (136-145); Total Protein 6.4 gm/dL (6.4-8.2)
--- NOTE | 2016-08-03 12:35 | PCM.NOTE ---
Date and Time: 08/03/16 1233 Subjective Assessment: still nausea and vomiting - Review of Systems Constitutional: No Fever, No Chills Eyes: No Symptoms Ears, Nose, & Throat: No Symptoms Respiratory: No Cough, No Short Of Breath Cardiac: No Chest Pain, No Edema, No Syncope Abdominal/Gastrointestinal: Abdominal Pain, Nausea, Vomiting, No Diarrhea Genitourinary Symptoms: No Dysuria Musculoskeletal: No Back Pain, No Neck Pain Skin: No Rash Neurological: No Dizziness, No Focal Weakness, No Sensory Changes Psychological: No Symptoms Endocrine: No Symptoms Hematologic/Lymphatic: No Symptoms Immunological/Allergic: No Symptoms Objective Exam General Appearance: no apparent distress, alert Neurologic Exam: alert, oriented x 3, cooperative, normal mood/affect, nml cerebellar function, sensation nml, No motor deficits Skin Exam: normal color, warm, dry Eye Exam: PERRL, EOMI, eyes nml inspection Ears, Nose, Throat Exam: normal ENT inspection, pharynx normal, moist mucous membranes Neck Exam: normal inspection, non-tender, supple, full range of motion Respiratory Exam: normal breath sounds, lungs clear, No respiratory distress Cardiovascular Exam: regular rate/rhythm, normal heart sounds Gastrointestinal/Abdomen Exam: soft, No tenderness, No mass Extremity Exam: normal inspection, normal range of motion Back Exam: normal inspection, normal range of motion, No CVA tenderness, No vertebral tenderness Pelvic Exam: deferred Rectal Exam: deferred OBJECTIVE DATA Vital Signs: Vital Signs - 24 hr Temp Pulse Resp BP Pulse Ox 08/03/16 07:00 98.5 F 67 18 117/64 92 L 08/03/16 03:00 98.5 F 72 20 122/71 93 L 08/02/16 23:00 98.1 F 69 19 108/62 96 08/02/16 19:00 98.9 F 69 19 124/97 93 L 08/02/16 15:00 98.3 F 66 20 120/71 94 L Pain Assessment - Last Documented Pain Intensity 6 Pain Scale Used 0-10 Pain Scale Intake and Output: Intake & Output 08/01/16 08/02/16 08/03/16 08/04/16 11:59 11:59 11:59 11:59 Intake Total 1327 Output Total 1600 Balance -273 Lab Results: Lab Results-Last 24 Hours 08/03/16 08/03/16 Range/Units 09:07 09:07 WBC 2.7 L (4.0-10.5) K/mm3 RBC 3.76 L (4.1-5.4) M/mm3 Hgb 11.2 L (12.0-16.0) gm/dl Hct 34.2 L (35-47) % MCV 91.0 (78-100) fl MCH 29.7 (26-32) pg MCHC 32.7 (32-36) g/dl RDW 13.4 (11.5-14.0) % Plt Count 143 L (150-450) K/mm3 MPV 10.1 H (6-9.5) fl Sodium 144 (136-145) mEq/L Potassium 3.4 L (3.5-5.1) mEq/L Chloride 105 (98-107) mEq/L Carbon Dioxide 30.6 (21-32) mEq/L Anion Gap 11.4 (5-15) MEQ/L BUN 8 L (9-20) mg/dL Creatinine 0.81 (0.55-1.30) mg/dl Estimated GFR > 60 ML/MIN Glucose 107 (70-110) MG/DL Calcium 8.3 L (8.5-10.1) mg/dL Total Bilirubin 0.3 (0.2-1.0) mg/dL AST 119 H (15-37) U/L ALT 352 H (12-78) U/L Alkaline Phosphatase 162 H (46-116) U/L Serum Total Protein 6.4 (6.4-8.2) gm/dL Albumin 3.1 L (3.4-5.0) g/dL Radiology Exams: Radiology Procedures Category Date Time Status GUIDE FOR VASCULAR ACCESS [US] Routine Exams 08/02/16 Completed PICC LINE PLACEMENT Routine Exams 08/02/16 12:07 Completed Assessment/Plan (1) Hepatitis Current Visit: Yes Status: Acute (2) RLQ abdominal pain Current Visit: Yes Status: Resolved (3) Nausea and vomiting Current Visit: Yes Status: Acute Qualifiers: Vomiting type: unspecified Vomiting Intractability: non-intractable Qualified Code(s): R11.2 - Nausea with vomiting, unspecified Code(s): R11.2 - NAUSEA WITH VOMITING, UNSPECIFIED (4) UTI (urinary tract infection) Current Visit: Yes Status: Acute Assessment & Plan: will start cipro 500 mg IVPB bid for 7 days Code(s): N39.0 - URINARY TRACT INFECTION, SITE NOT SPECIFIED (5) Hx of sarcoidosis Current Visit: Yes Status: Chronic Code(s): Z86.2 - PRSNL HISTORY OF DIS OF THE BLD/BLD-FORM ORG/IMMUN MECHNSM
[2016-08-03] MEDS: MERREM 500MG 500 MG in Sodium Chloride 100ML MINI-BAG PLUS 100 ML IV SCH ×2 (14:37→22:00)
[2016-08-03] MEDS: ZOFRAN ODT 4 MG PO PRN (20:56)
[2016-08-03] MEDS: Zanaflex 4 MG PO SCH (22:01)
[2016-08-04] MEDS: MERREM 500MG 500 MG in Sodium Chloride 100ML MINI-BAG PLUS 100 ML IV SCH ×2 (05:33→14:11)
[2016-08-04] MEDS: Pepcid 20 MG VIAL IV SCH (07:48)
[2016-08-04] MEDS: DILAUDID 2 MG INJECTION IV PRN ×2 (07:48→12:58)
[2016-08-04] MEDS: Dextrose 5%-Lr IV Solution 1000 ML 1,000 ML IV SCH (07:54)
[2016-08-04 09:22] LABS: Mean Cell Volume 91.3 fl (78-100); Mean Corpuscular Hemoglobin 29.8 pg (26-32); Mean Platelet Volume 10.2 fl (6-9.5); Platelet Count 140 K/mm3 (150-450); Red Blood Count 3.69 M/mm3 (4.1-5.4); Red Cell Distribution Width 13.4 % (11.5-14.0); White Blood Count 2.6 K/mm3 (4.0-10.5)
[2016-08-04 09:30] LABS: ALBUMIN 2.9 g/dL (3.4-5.0); ALKALINE PHOSPHATASE 138 U/L (46-116); ANION GAP 11.2 MEQ/L (5-15); BILIRUBIN,TOTAL 0.2 mg/dL (0.2-1.0); BLOOD UREA NITROGEN 6 mg/dL (9-20); CHLORIDE 107 mEq/L (98-107); Glucose 83 MG/DL (70-110); Potassium 3.8 mEq/L (3.5-5.1); SGOT/AST 56 U/L (15-37); SGPT/ALT 230 U/L (12-78); SODIUM 142 mEq/L (136-145)
[2016-08-04] MEDS: Trileptal 300 MG Tablet PO SCH ×2 (09:33→15:06)
[2016-08-04] MEDS: Wellbutrin XL 150 MG PO SCH (09:33)
--- NOTE | 2016-08-04 12:46 | PCM.NOTE ---
Date and Time: 08/04/16 1245 Subjective Assessment: doing better - Review of Systems Constitutional: No Fever, No Chills Eyes: No Symptoms Ears, Nose, & Throat: No Symptoms Respiratory: No Cough, No Short Of Breath Cardiac: No Chest Pain, No Edema, No Syncope Abdominal/Gastrointestinal: No Abdominal Pain, No Nausea, No Vomiting, No Diarrhea Genitourinary Symptoms: No Dysuria Musculoskeletal: No Back Pain, No Neck Pain Skin: No Rash Neurological: No Dizziness, No Focal Weakness, No Sensory Changes Psychological: No Symptoms Endocrine: No Symptoms Hematologic/Lymphatic: No Symptoms Immunological/Allergic: No Symptoms Objective Exam General Appearance: no apparent distress, alert Neurologic Exam: alert, oriented x 3, cooperative, normal mood/affect, nml cerebellar function, sensation nml, No motor deficits Skin Exam: normal color, warm, dry Eye Exam: PERRL, EOMI, eyes nml inspection Ears, Nose, Throat Exam: normal ENT inspection, pharynx normal, moist mucous membranes Neck Exam: normal inspection, non-tender, supple, full range of motion Respiratory Exam: normal breath sounds, lungs clear, No respiratory distress Cardiovascular Exam: regular rate/rhythm, normal heart sounds Gastrointestinal/Abdomen Exam: soft, No tenderness, No mass Extremity Exam: normal inspection, normal range of motion Back Exam: normal inspection, normal range of motion, No CVA tenderness, No vertebral tenderness Pelvic Exam: deferred Rectal Exam: deferred OBJECTIVE DATA Vital Signs: Vital Signs - 24 hr Temp Pulse Resp BP Pulse Ox 08/04/16 11:00 97.9 F 71 20 122/71 93 L 08/04/16 07:00 98 F 68 18 113/66 93 L 08/04/16 03:00 98.5 F 66 16 104/61 95 08/03/16 23:00 97.7 F 70 18 103/65 95 08/03/16 19:00 98.2 F 79 16 122/69 96 08/03/16 15:00 98.6 F 70 18 120/75 94 L Pain Assessment - Last Documented Pain Intensity 5 Pain Scale Used 0-10 Pain Scale Intake and Output: Intake & Output 08/02/16 08/03/16 08/04/16 08/05/16 11:59 11:59 11:59 11:59 Intake Total 1327 1381 Output Total 1600 1900 Balance -273 -519 Lab Results: Lab Results-Last 24 Hours 08/04/16 08/04/16 Range/Units 08:59 08:59 WBC 2.6 L (4.0-10.5) K/mm3 RBC 3.69 L (4.1-5.4) M/mm3 Hgb 11.0 L (12.0-16.0) gm/dl Hct 33.7 L (35-47) % MCV 91.3 (78-100) fl MCH 29.8 (26-32) pg MCHC 32.6 (32-36) g/dl RDW 13.4 (11.5-14.0) % Plt Count 140 L (150-450) K/mm3 MPV 10.2 H (6-9.5) fl Sodium 142 (136-145) mEq/L Potassium 3.8 (3.5-5.1) mEq/L Chloride 107 (98-107) mEq/L Carbon Dioxide 28.0 (21-32) mEq/L Anion Gap 11.2 (5-15) MEQ/L BUN 6 L (9-20) mg/dL Creatinine 0.74 (0.55-1.30) mg/dl Estimated GFR > 60 ML/MIN Glucose 83 (70-110) MG/DL Calcium 8.1 L (8.5-10.1) mg/dL Total Bilirubin 0.2 (0.2-1.0) mg/dL AST 56 H (15-37) U/L ALT 230 H (12-78) U/L Alkaline Phosphatase 138 H (46-116) U/L Serum Total Protein 6.0 L (6.4-8.2) gm/dL Albumin 2.9 L (3.4-5.0) g/dL Radiology Exams: Radiology Procedures Category Date Time Status PICC LINE PLACEMENT Routine Exams 08/02/16 12:07 Completed Assessment/Plan (1) Hepatitis Current Visit: Yes Status: Acute (2) RLQ abdominal pain Current Visit: Yes Status: Resolved (3) Nausea and vomiting Current Visit: Yes Status: Acute Qualifiers: Vomiting type: unspecified Vomiting Intractability: non-intractable Qualified Code(s): R11.2 - Nausea with vomiting, unspecified Code(s): R11.2 - NAUSEA WITH VOMITING, UNSPECIFIED (4) UTI (urinary tract infection) Current Visit: Yes Status: Acute Code(s): N39.0 - URINARY TRACT INFECTION, SITE NOT SPECIFIED (5) Hx of sarcoidosis Current Visit: Yes Status: Chronic Code(s): Z86.2 - PRSNL HISTORY OF DIS OF THE BLD/BLD-FORM ORG/IMMUN MECHNSM (6) Hepatitis B antibody positive Current Visit: Yes Status: Acute Code(s): R76.8 - OTHER SPECIFIED ABNORMAL IMMUNOLOGICAL FINDINGS IN SERUM (7) Hepatitis B infection Current Visit: Yes Status: Acute Qualifiers: Hepatic coma status: without hepatic coma Hepatitis delta agent presence: without delta-agent
[2016-08-04 16:02] LABS: Collection Type CATH
[2016-08-04 16:11] LABS: COMPLETE URINE MICROSCOPIC? YES
[2016-08-04 16:20] LABS: Bacteria MODERATE /HPF (NEGATIVE); Epithelial Cells FEW /HPF (FEW); Mucus SLIGHT /HPF (NEGATIVE)
[2016-08-04 16:36] VITALS: BP 147/86; PULSE 68; O2SAT 97
== END 2016-08-04 19:15 | disposition home or self-care (01) | DRG 442 ==
LOC: ED 20:04 → MED SURG 08-01 00:05 → OBSVTOIN 08-02 11:30
PROVIDERS: ADMIT General Practice; ATTEND General Practice
DX: B19.10 Unspecified viral hepatitis B without hepatic coma (principal); N39.0 Urinary tract infection, site not specified; R10.31 Right lower quadrant pain; R11.2 Nausea with vomiting, unspecified; Z86.2 Personal history of diseases of the blood and blood-forming organs and certain disorders involving the immune mechanism; R76.8 Other specified abnormal immunological findings in serum
CPT/HCPCS: 36000; 36415; 36569; 74177; 76937; 77001; 80053; 80074; 81000; 81002; 82962; 83605; 83690; 85025; 85027; 85610; 85730; 86705; 87077; 87086; 87186; 93005; 96360; 96365; 96366; 96374; 96375; 99285; C1769; G0378; J1170; J1200; J1642; J2405; J2550; Q0162; A9270-GY

== ENCOUNTER 2016-11-14 17:49 | Emergency (ER) | payer MEDICARE ==
[2016-11-14 18:05] VITALS: O2SAT 95
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
[2016-11-14 19:08] VITALS: BP 114/52; PULSE 87
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
== END 2016-11-14 19:09 | disposition home or self-care (01) ==
LOC: ED 17:49
DX: S90.32XA Contusion of left foot, initial encounter (principal); V86.59XA Driver of other special all-terrain or other off-road motor vehicle injured in nontraffic accident, initial encounter; S30.1XXA Contusion of abdominal wall, initial encounter; S80.211A Abrasion, right knee, initial encounter; M25.561 Pain in right knee; M79.672 Pain in left foot
CPT/HCPCS: 73630; 99283

== ENCOUNTER 2016-11-15 14:29 | Emergency (ER) | payer MEDICARE | END 2016-11-15 15:01 | disposition home or self-care (01) | LOC: ED 14:29 | DX: Z53.9 Procedure and treatment not carried out, unspecified reason (principal) ==

== ENCOUNTER 2017-07-24 15:34 | Emergency (ER) | payer MEDICARE ==
[2017-07-24] MEDS ORDERED: Sodium Chloride 0.9% 1000 ML 1,000 ML IV STA (16:28)
[2017-07-24] MEDS ORDERED: TORAdol 30 mg Injection IV ONE (16:28)
[2017-07-24] MEDS ORDERED: BENADRYL 50 MG/ML IV ONE (16:30)
[2017-07-24] MEDS ORDERED: Reglan 10 MG/2 ML IV ONE (16:30)
--- NOTE | 2017-07-24 16:34 | ERPHSYRPT ---
- History of Present Illness Time Seen by Provider: 07/24/17 16:23 Source: patient Exam Limitations: no limitations Patient Subjective Stated Complaint: states headache for four days. hx migraines. states heart doc told her that her upper chamber of her heart was not pumping all the blood out. hx pacemaker. states took one ntg yesterday for some chest pain which it relieved. no further episodes since then Triage Nursing Assessment: present with sunglasses on, tearful. paxton. a/o times three. gait steady. hill without difficulty. Physician History: Pt states, she had brain tumor removed x2 in the past. She has been suffering of Migraines, more frequent episodes recently. She developed right frontal headaches again 4 days ago, nauseated, denies vomiting, fever, recent trauma, other complaints. She has been trying [place] with no relief. Timing/Duration: day(s) (4) Quality: throbbing Head Pain Location: frontal Severity of Pain-Max: severe Severity of Pain-Current: severe Recent Head Trauma: frequent headaches Modifying Factors: Improves With: exposure to light Associated Symptoms: sensitive to light Previous symptoms: same symptoms as today Allergies/Adverse Reactions: No Known Drug Allergies Allergy (Verified 07/24/17 16:20) Home Medications: Bupropion HCl [Wellbutrin Xl] 300 mg PO DAILY 03/02/14 [History] Omeprazole [Prilosec] 40 mg PO BID PRN 03/02/14 [History] Nitroglycerin 0.4 mg Tablet [Nitrostat 0.4 MG Tablet] 1 tab PO UD PRN [History] Oxcarbazepine 300 mg [Trileptal 300 MG Tablet] 600 mg PO TID 08/01/16 [ History] Tizanidine HCl 4 mg [Zanaflex 4 MG] 8 mg PO HS 08/01/16 [History] Torsemide 20 mg [Demadex 20 mg] 20 mg PO WEEKLY 01/19/17 [History] Hx Tetanus, Diphtheria Vaccination/Date Given: Yes (up to date) Hx Influenza Vaccination/Date Given: No Hx Pneumococcal Vaccination/Date Given: Yes - Review of Systems Constitutional: No Symptoms Abdominal/Gastrointestinal: Nausea Neurological: Headache All Other Systems: Reviewed and Negative - Past Medical History Pertinent Past Medical History: Yes Neurological History: No Pertinent History ENT History: No Pertinent History Cardiac History: Arrhythmia Respiratory History: Other Endocrine Medical History: Diabetes Type II Musculoskeletal History: Osteoarthritis, Rheumatoid Arthritis GI Medical History: Esophageal Disorder History: Other Psycho-Social History: No Pertinent History Female Reproductive Disorders: No Pertinent History Other Medical History: SARCOIDOSIS - WEAVER'S ESOPHAGOUS. possible cyst/stone in kidney. post brain "mass" surgery seizures. 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 gastric bypass adhesion - Social History Smoking Status: Former smoker Exposure to second hand smoke: No Drug Use: none Patient Lives Alone: No - Female History Hx Now: No - Nursing Vital Signs Nursing Vital Signs: Initial Vital Signs Temperature 97.8 F 07/24/17 16:10 Pulse Rate 72 07/24/17 16:10 Respiratory Rate 18 07/24/17 16:10 Blood Pressure 154/97 07/24/17 16:10 O2 Sat by Pulse Oximetry 98 07/24/17 16:10 Pain Scale Pain Intensity 10 - Physical Exam General Appearance: no apparent distress Eye Exam: PERRL/EOMI, eyes nml inspection Ears, Nose, Throat Exam: normal ENT inspection, pharynx normal Neck Exam: normal inspection, non-tender, supple, No mass, No carotid bruit, No JVD Respiratory Exam: normal breath sounds, lungs clear, airway intact, No chest tenderness Cardiovascular Exam: regular rate/rhythm, normal heart sounds, normal peripheral pulses, No murmur Gastrointestinal/Abdominal Exam: soft, normal bowel sounds, No tenderness, No distention, No mass Back Exam: normal inspection, No CVA tenderness Extremity Exam: normal inspection Mental Status Exam: alert, oriented x 3, cooperative, 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: normal speech, PERRL Motor/Sensory Exam: no motor deficit DTR Exam: knee (R): 3+, knee (L): 3+ Skin Exam: normal color, warm, dry, No rash Lymphatic Exam: No adenopathy SpO2 Interpretation: normal SpO2: 98 Oxygen Delivery: Room Air - Course Nursing assessment & vital signs reviewed: Yes EKG Interpreted by Me: RATE (69/min), Left [place] Deviation, NORMAL INTERVALS, Non -specific ST Changes - CT Exams Head CT Interpretation: Negative, Tele-radiologist Report Ordered Tests: Active Orders 24 hr Category Date Time Status EKG-ER Only STAT Care 07/24/17 16:11 Active IV Insertion STAT Care 07/24/17 16:50 Active Oxygen-ED Only NASAL CANNULA 2 lpm Care 07/24/17 16:28 Active HEAD WITHOUT CONTRAST [CT] Stat Exams 07/24/17 16:29 Taken CBC W DIFF Stat Lab 07/24/17 16:51 Completed CMP Stat Lab 07/24/17 16:51 Completed CULTURE,URINE Stat Lab 07/24/17 18:15 Received Erythrocyte Sedimentation Rate Stat Lab 07/24/17 16:51 Completed PROTIME WITH INR Stat Lab 07/24/17 16:51 Completed UA W/ MICROSCOPIC Stat Lab 07/24/17 18:15 Completed Urine Triage Profile Stat Lab 07/24/17 18:15 Completed Medication Summary Discontinued Medications Generic Name Dose Route Start Last Admin Trade Name Freq PRN Reason Stop Dose Admin Butorphanol Tartrate 1 mg 07/24/17 18:32 07/24/17 18:38 Stadol 2 Mg IV 07/24/17 18:33 1 mg STAT ONE Administration Butorphanol Tartrate Confirm 07/24/17 18:36 Stadol 2 Mg Administered 07/24/17 18:37 Dose 2 mg .ROUTE .STK-MED ONE Diphenhydramine HCl 25 mg 07/24/17 16:30 07/24/17 16:58 Benadryl 50 Mg/Ml IV 07/24/17 16:31 25 mg STAT ONE Administration Diphenhydramine HCl Confirm 07/24/17 16:53 Benadryl 50 Mg/Ml Administered 07/24/17 16:54 Dose 50 mg .ROUTE .STK-MED ONE Diphenhydramine HCl Confirm 07/24/17 17:01 Benadryl 50 Mg/Ml Administered 07/24/17 17:02 Dose 50 mg .ROUTE .STK-MED ONE Sodium Chloride 1,000 mls @ 999 mls/hr 07/24/17 16:28 07/24/17 16:57 Sodium Chloride 0.9% 1000 Ml IV 07/24/17 17:28 999 mls/hr .Q1H1M STA Administration Sodium Chloride Confirm 07/24/17 16:54 Sodium Chloride 0.9% 1000 Ml Administered 07/24/17 16:55 Dose 1,000 mls @ ud .ROUTE .STK-MED ONE Sodium Chloride Confirm 07/24/17 17:01 Sodium Chloride 0.9% 1000 Ml Administered 07/24/17 17:02 Dose 1,000 mls @ ud .ROUTE .STK-MED ONE Ketorolac Tromethamine 30 mg 07/24/17 16:28 07/24/17 16:58 Toradol 30 Mg Injection IV 07/24/17 16:29 30 mg STAT ONE Administration Ketorolac Tromethamine Confirm 07/24/17 16:53 Toradol 30 Mg Injection Administered 07/24/17 16:54 Dose 30 mg .ROUTE .STK-MED ONE Ketorolac Tromethamine Confirm 07/24/17 17:01 Toradol 30 Mg Injection Administered 07/24/17 17:02 Dose 30 mg .ROUTE .STK-MED ONE Metoclopramide HCl 10 mg 07/24/17 16:30 07/24/17 16:58 Reglan 10 Mg/2 Ml IV 07/24/17 16:31 10 mg STAT ONE Administration Metoclopramide HCl Confirm 07/24/17 16:54 Reglan 10 Mg/2 Ml Administered 07/24/17 16:55 Dose 10 mg .ROUTE .STK-MED ONE Metoclopramide HCl Confirm 07/24/17 17:01 Reglan 10 Mg/2 Ml Administered 07/24/17 17:02 Dose 10 mg .ROUTE .STK-MED ONE Trimethoprim/Sulfamethoxazole 1 tab 07/24/17 18:31 07/24/17 18:39 Bactrim Ds Tablet PO 07/24/17 18:32 1 tab STAT STA Administration Trimethoprim/Sulfamethoxazole Confirm 07/24/17 18:37 Bactrim Ds Tablet Administered 07/24/17 18:38 Dose 1 tab PO .STK-MED ONE Lab/Rad Data: Laboratory Result Diagrams 07/24/17 16:51 07/24/17 16:51 Laboratory Results 07/24/17 07/24/17 07/24/17 Range/Units 18:15 18:15 16:51 WBC (4.0-10.5) K/mm3 RBC (4.1-5.4) M/mm3 Hgb (12.0-16.0) gm/dl Hct (35-47) % MCV (78-100) fl MCH (26-32) pg MCHC (32-36) g/dl RDW (11.5-14.0) % Plt Count (150-450) K/mm3 MPV (6-9.5) fl Gran % (36.0-66.0) % Eos # (Auto) (0-0.5) Absolute Lymphs (auto) (1.0-4.6) Absolute Monos (auto) (0.0-1.3) Lymphocytes % (24.0-44.0) % Monocytes % (0.0-12.0) % Eosinophils % (0.00-5.0) % Basophils % (0.0-0.4) % Absolute Granulocytes (1.4-6.9) Basophils # (0-0.4) ESR (0-20) mm/hr PT 11.7 (9.95-12.35) SECONDS INR 1.05 (0.8-3.0) Sodium (137-145) mmol/L Potassium (3.5-5.1) mmol/L Chloride (98-107) mmol/L Carbon Dioxide (22-30) mmol/L Anion Gap (5-15) MEQ/L BUN (7-17) mg/dL Creatinine (0.52-1.04) mg/dL Estimated GFR ML/MIN Glucose (74-106) mg/dL Calcium (8.4-10.2) mg/dL Total Bilirubin (0.2-1.3) mg/dL AST (14-36) U/L ALT (0-35) U/L Alkaline Phosphatase (38-126) U/L Serum Total Protein (6.3-8.2) g/dL Albumin (3.5-5.0) g/dL Ur Collection Type CCMS Urine Color YELLOW (YELLOW) Urine Appearance SLIGHTLY CLOUDY (CLEAR) Urine pH 5.0 (5-6) Ur Specific [place] 1.015 (1.005-1.025) Urine Protein NEGATIVE (Negative) Urine Ketones NEGATIVE (NEGATIVE) Urine Blood NEGATIVE (0-5) Chema/ul Urine Nitrite POSITIVE (NEGATIVE) Urine Bilirubin NEGATIVE (NEGATIVE) Urine Urobilinogen NORMAL (0-1) mg/dL Ur Leukocyte Esterase TRACE (NEGATIVE) Urine Microscopic WBC 2-5 (0-5) /HPF Ur Epithelial Cells RARE (FEW) /HPF Urine Bacteria MANY (NEGATIVE) /HPF Urine Culture Reflexed YES (NO) Urine Glucose NEGATIVE (NEGATIVE) mg/dL Urine Opiates Level POSITIVE (NEGATIVE) Ur Methadone NEGATIVE (NEGATIVE) Urine Barbiturates NEGATIVE (NEGATIVE) Ur Phencyclidine (PCP) NEGATIVE (NEGATIVE) Urine Amphetamine NEGATIVE (NEGATIVE) U Benzodiazepine Level NEGATIVE (NEGATIVE) Urine Cocaine NEGATIVE (NEGATIVE) Urine Marijuana (THC) NEGATIVE (NEGATIVE) Specimen Received 07-24-17 1820 07/24/17 07/24/17 Range/Units 16:51 16:51 WBC 4.2 (4.0-10.5) K/mm3 RBC 4.02 L (4.1-5.4) M/mm3 Hgb 12.6 (12.0-16.0) gm/dl Hct 37.2 (35-47) % MCV 92.5 (78-100) fl MCH 31.3 (26-32) pg MCHC 33.9 (32-36) g/dl RDW 13.1 (11.5-14.0) % Plt Count 148 L (150-450) K/mm3 MPV 9.6 H (6-9.5) fl Gran % 59.4 (36.0-66.0) % Eos # (Auto) 0.19 (0-0.5) Absolute Lymphs (auto) 1.19 (1.0-4.6) Absolute Monos (auto) 0.31 (0.0-1.3) Lymphocytes % 28.1 (24.0-44.0) % Monocytes % 7.3 (0.0-12.0) % Eosinophils % 4.5 (0.00-5.0) % Basophils % 0.7 (0.0-0.4) % Absolute Granulocytes 2.51 (1.4-6.9) Basophils # 0.03 (0-0.4) ESR 17 (0-20) mm/hr PT (9.95-12.35) SECONDS INR (0.8-3.0) Sodium 142 (137-145) mmol/L Potassium 4.1 (3.5-5.1) mmol/L Chloride 107 (98-107) mmol/L Carbon Dioxide 28 (22-30) mmol/L Anion Gap 12.5 (5-15) MEQ/L BUN 17 (7-17) mg/dL Creatinine 0.65 (0.52-1.04) mg/dL Estimated GFR > 60.0 ML/MIN Glucose 87 (74-106) mg/dL Calcium 8.6 (8.4-10.2) mg/dL Total Bilirubin 0.20 (0.2-1.3) mg/dL AST 27 (14-36) U/L ALT 31 (0-35) U/L Alkaline Phosphatase 83 (38-126) U/L Serum Total Protein 6.4 (6.3-8.2) g/dL Albumin 3.8 (3.5-5.0) g/dL Ur Collection Type Urine Color (YELLOW) Urine Appearance (CLEAR) Urine pH (5-6) Ur Specific [place] (1.005-1.025) Urine Protein (Negative) Urine Ketones (NEGATIVE) Urine Blood (0-5) Chema/ul Urine Nitrite (NEGATIVE) Urine Bilirubin (NEGATIVE) Urine Urobilinogen (0-1) mg/dL Ur Leukocyte Esterase (NEGATIVE) Urine Microscopic WBC (0-5) /HPF Ur Epithelial Cells (FEW) /HPF Urine Bacteria (NEGATIVE) /HPF Urine Culture Reflexed (NO) Urine Glucose (NEGATIVE) mg/dL Urine Opiates Level (NEGATIVE) Ur Methadone (NEGATIVE) Urine Barbiturates (NEGATIVE) Ur Phencyclidine (PCP) (NEGATIVE) Urine Amphetamine (NEGATIVE) U Benzodiazepine Level (NEGATIVE) Urine Cocaine (NEGATIVE) Urine Marijuana (THC) (NEGATIVE) Specimen Received - Progress Progress: improved Air Movement: good Progress Note: 07/24/17 18:33 Pt has been stable, afebrile, headaches improved, did not vomit. She states, she has prescription for Stadol from her doctor, but could not fill it yet. 07/24/17 18:34 She was educated about her results, being discharged in stable condition, advised to rest x 2-3 days, drink plenty of fluids, and follow up with her doctor in 2-3 days, return if severe headaches, vomiting, lethargy or fever> 102 F! - Departure Time of Disposition: 18:34 Departure Disposition: Home Clinical Impression: Headache Qualifiers: Headache type: unspecified Headache chronicity pattern: unspecified pattern Intractability: not intractable Qualified Code(s): R51 - Headache UTI (urinary tract infection) Qualifiers: Urinary tract infection type: site unspecified Hematuria presence: without hematuria Qualified Code(s): N39.0 - Urinary tract infection, site not specified Condition: Stable Critical Care Time: No Referrals: KUNAL CASON MD [Primary Care Provider] - Instructions: Urinary Tract Infection, Adult (DC), Headache, Adult (DC) Additional Instructions: Rest x 2-3 days, drink plenty of fluids, return if severe headaches, vomiting, lethargy or fever> 102 F, follow up with your physician in 2-3 days! Prescriptions: Sulfamethoxazole/Trimethoprim [Bactrim Ds Tablet] 1 each PO BID #14 tablet
[2017-07-24] MEDS ORDERED: BENADRYL 50 MG/ML ONE ×2 (16:53→17:01)
[2017-07-24] MEDS ORDERED: TORAdol 30 mg Injection ONE ×2 (16:53→17:01)
[2017-07-24] MEDS ORDERED: Sodium Chloride 0.9% 1000 ML 1,000 ML ONE (16:54)
[2017-07-24] MEDS ORDERED: Reglan 10 MG/2 ML ONE ×2 (16:54→17:01)
[2017-07-24 16:55] LABS: BASOPHIL % 0.7 % (0.0-0.4); Basophil (Absolute #) 0.03 (0-0.4); Eosinophil % 4.5 % (0.00-5.0); Eosinophil (Absolute #) 0.19 (0-0.5); Granulocyte Absolute (ANC) 2.51 (1.4-6.9); Granulocytes % 59.4 % (36.0-66.0); Hematocrit 37.2 % (35-47); Hemoglobin 12.6 gm/dl (12.0-16.0); Lymphocyte (Absolute #) 1.19 (1.0-4.6); Lymphocytes % 28.1 % (24.0-44.0); Mean Cell Volume 92.5 fl (78-100); Mean Corpuscular Hemoglobin 31.3 pg (26-32); Mean Corpuscular Hgb Concent. 33.9 g/dl (32-36); Mean Platelet Volume 9.6 fl (6-9.5); Monocyte (Absolute #) 0.31 (0.0-1.3); Monocytes % 7.3 % (0.0-12.0); Platelet Count 148 K/mm3 (150-450); Red Blood Count 4.02 M/mm3 (4.1-5.4); Red Cell Distribution Width 13.1 % (11.5-14.0); White Blood Count 4.2 K/mm3 (4.0-10.5)
[2017-07-24] MEDS ORDERED: Sodium Chloride 0.9% 1000 ML 0 ML ONE (17:01)
[2017-07-24 17:11] LABS: INR 1.05 (0.8-3.0)
[2017-07-24 17:14] LABS: ALBUMIN 3.8 g/dL (3.5-5.0); ALKALINE PHOSPHATASE 83 U/L (38-126); ANION GAP 12.5 MEQ/L (5-15); BLOOD UREA NITROGEN 17 mg/dL (7-17); CHLORIDE 107 mmol/L (98-107); Calcium 8.6 mg/dL (8.4-10.2); Carbon Dioxide 28 mmol/L (22-30); Creatinine 1 0.65 mg/dL (0.52-1.04); Glucose 87 mg/dL (74-106); Potassium 4.1 mmol/L (3.5-5.1); SGOT/AST 27 U/L (14-36); SGPT/ALT 31 U/L (0-35); SODIUM 142 mmol/L (137-145); Total Protein 6.4 g/dL (6.3-8.2)
[2017-07-24 17:25] LABS: Erythrocyte Sedimentation Rate 17 mm/hr (0-20)
[2017-07-24 18:10] VITALS: O2SAT 98
[2017-07-24 18:24] LABS: Appearance SLIGHTLY CLOUDY (CLEAR); Bilirubin NEGATIVE (NEGATIVE); Blood NEGATIVE Ery/ul (0-5); Epithelial Cells RARE /HPF (FEW); Glucose NEGATIVE (NEGATIVE); Ketones NEGATIVE (NEGATIVE); Leukocyte Esterase TRACE (NEGATIVE); Nitrite POSITIVE (NEGATIVE); Protein,Urine Dip NEGATIVE (Negative); Specific Gravity 1.015 (1.005-1.025); Urobilinogen NORMAL mg/dL (0-1)
[2017-07-24 18:25] LABS: Bacteria MANY /HPF (NEGATIVE)
[2017-07-24 18:30] LABS: Amphetamine,Urine NEGATIVE (NEGATIVE); Barbiturate,Urine NEGATIVE (NEGATIVE); Benzodiazepine,Urine NEGATIVE (NEGATIVE); Cocaine,Urine NEGATIVE (NEGATIVE); Methadone,Urine NEGATIVE (NEGATIVE); Opiate,Urine POSITIVE (NEGATIVE); PCP,Urine NEGATIVE (NEGATIVE); THC,Urine NEGATIVE (NEGATIVE)
[2017-07-24] MEDS ORDERED: BACTRIM DS TABLET PO STA (18:31)
[2017-07-24] MEDS ORDERED: STADOL 2 MG IV ONE (18:32)
[2017-07-24] MEDS ORDERED: STADOL 2 MG ONE (18:36)
[2017-07-24] MEDS ORDERED: BACTRIM DS TABLET PO ONE (18:37)
[2017-07-24 19:11] VITALS: BP 116/66; PULSE 67
--- NOTE | 2017-07-24 19:56 | XRAY ---
Indication: Chronic headache. Multiple contiguous axial images obtained through the head without contrast. Comparison: May 02, 2016. Again normal appearing brain parenchyma, ventricles, and bony calvarium. Visualized paranasal sinuses and mastoid air cells are clear. Impression: Stable normal CT head without contrast exam. Comment: Preliminary interpretation was made by [facility]. No discrepancy. CTDI 68.65
== END 2017-07-24 19:19 | disposition home or self-care (01) ==
LOC: ED 15:34
DX: R51 Headache (principal); N39.0 Urinary tract infection, site not specified; Z79.899 Other long term (current) drug therapy
CPT/HCPCS: 36000; 36415; 70450; 80053; 80307; 81000; 85025; 85610; 85652; 87077; 87086; 87186; 93005; 96360; 96374; 96375; 99284; J0595; J1200; J1885; A9270-GY

== ENCOUNTER 2022-07-28 17:15 | Emergency (ER) | payer MEDICARE ==
[2022-07-28] MEDS ORDERED: TYLENOL 325 MG PO ONE (19:39)
[2022-07-28] MEDS ORDERED: TYLENOL 325 MG ONE (19:46)
[2022-07-28 21:05] VITALS: PULSE 70; O2SAT 96
--- NOTE | 2022-07-28 22:37 | ERPHSYRPT ---
- History of Present Illness Time Seen by Provider: 07/28/22 18:45 Source: patient Exam Limitations: no limitations Patient Subjective Stated Complaint: PT states "I was mowing and I tripped and I fell over backward and I felt and heard something pop in my chest and my right lower back. I have allot of stuff in my chest like a pacemaker and port and I want to make sure none of it broke." Triage Nursing Assessment: Pt presented alert and oriented X 3, skin pwd. Pt ambulates with a slow gait. pt winces and grimaces when she moves her arms. pt chest is tender to touch. Physician History: Patient is a 61-year-old female presents to our ED for evaluation of low back pain and chest wall pain. Patient states she was mowing her grass. Patient was pulling her lawn more backwards she tripped and fell. Patient heard a pop in her chest and is concerned as she has a pacemaker. Patient also complains of right lumbar paraspinal pain. Patient is chest pain and back pain worse with movement and palpation. Pain improved with rest. No BHT or LOC. No neck pain. Cervical spine cleared clinically. Patient voices no other complaints or concerns at this time. Patient only wants Tylenol for pain control. Patient declined other forms of pain control Portions of this note were created with voice recognition technology. There may be grammatical, spelling, punctuation or sound alike errors Timing/Duration: today Severity: moderate Modifying Factors: Improves With: nothing Associated Symptoms: vomiting (Patient states she vomited once after the fall.) Allergies/Adverse Reactions: No Known Drug Allergies Allergy (Verified 07/24/17 16:20) Home Medications: Omeprazole [Prilosec] 40 mg PO BID PRN 03/02/14 [History] buPROPion HCL [Wellbutrin Xl] 300 mg PO DAILY 03/02/14 [History] Nitroglycerin 0.4 mg Tablet [Nitrostat 0.4 MG Tablet] 1 tab PO UD PRN 08/01/16 [History] Oxcarbazepine 300 mg [Trileptal 300 MG Tablet] 600 mg PO TID 08/01/16 [History] Tizanidine HCl 4 mg [Zanaflex 4 MG] 8 mg PO HS 08/01/16 [History] Torsemide 20 mg [Demadex 20 mg] 20 mg PO WEEKLY 01/19/17 [History] Hx Tetanus, Diphtheria Vaccination/Date Given: Yes (up to date) Hx Influenza Vaccination/Date Given: No Hx Pneumococcal Vaccination/Date Given: Yes Immunizations Up to Date: Yes Travel Risk - International Travel Have you traveled outside of the country in past 3 weeks: No - Coronavirus Screening Are you exhibiting any of the following symptoms?: No Close contact with a COVID-19 positive Pt in past 14-21 Days: No - Vaccine Status Have you recieved a Covid-19 vaccination: Yes 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[employer] - Vaccination Dates Date of 2cond Vaccination (if applicable): 2020 - Review of Systems Constitutional: No Symptoms, No Fever, No Chills Eyes: No Symptoms Ears, Nose, & Throat: No Symptoms Respiratory: No Symptoms, No Cough, No Dyspnea Cardiac: No Symptoms, No Chest Pain, No Edema, No Syncope Abdominal/Gastrointestinal: No Symptoms, No Abdominal Pain, No Nausea, No Vomiting, No Diarrhea Genitourinary Symptoms: No Symptoms, No Dysuria Musculoskeletal: No Symptoms, No Back Pain, No Neck Pain Skin: No Symptoms, No Rash Neurological: No Symptoms, No Dizziness, No Focal Weakness, No Sensory Changes Psychological: No Symptoms Endocrine: No Symptoms Hematologic/Lymphatic: No Symptoms Immunological/Allergic: No Symptoms All Other Systems: Reviewed and Negative - Past Medical History Pertinent Past Medical History: Yes Neurological History: No Pertinent History ENT History: No Pertinent History Cardiac History: Arrhythmia Respiratory History: Other Endocrine Medical History: Diabetes Type II Musculoskeletal History: Osteoarthritis, Rheumatoid Arthritis GI Medical History: Esophageal Disorder History: Other Psycho-Social History: No Pertinent History Female Reproductive Disorders: No Pertinent History Other Medical History: SARCOIDOSIS - WEAVER'S ESOPHAGOUS. possible cyst/stone in kidney. post brain "mass" surgery seizures. 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 gastric bypass adhesion - Social History Smoking Status: Former smoker Exposure to second hand smoke: No Drug Use: none Patient Lives Alone: No - Nursing Vital Signs Nursing Vital Signs: Initial Vital Signs Temperature 99.0 F 07/28/22 18:13 Pulse Rate 71 07/28/22 18:13 Respiratory Rate 20 07/28/22 18:13 Blood Pressure 182/84 07/28/22 18:13 O2 Sat by Pulse Oximetry 99 07/28/22 18:13 Pain Scale Pain Intensity [Posterior Back 8 ] Pain Intensity 8 - Physical Exam General Appearance: no apparent distress, alert Eye Exam: PERRL/EOMI, eyes nml inspection Ears, Nose, Throat Exam: normal ENT inspection, TMs normal, pharynx normal, moist mucous membranes Neck Exam: normal inspection, non-tender, supple, full range of motion Respiratory Exam: normal breath sounds, lungs clear, airway intact, No respiratory distress Cardiovascular Exam: regular rate/rhythm, normal heart sounds, normal peripheral pulses, other (Tenderness to palpation anterior chest wall. Overlying soft tissue intact. No signs of trauma. Bilateral upper extremities neurovascular tact distally.) Gastrointestinal/Abdomen Exam: soft, normal bowel sounds, No tenderness, No mass Back Exam: normal inspection, normal range of motion, other (Tenderness to palpation to right lumbar paraspinal. Overlying soft tissue intact. No obvious signs of trauma.), No CVA tenderness, No vertebral tenderness Extremity Exam: normal inspection, normal range of motion, pelvis stable Neurologic Exam: alert, oriented x 3, cooperative, normal mood/affect, nml cerebellar function, nml station & gait, sensation nml, No motor deficits Skin Exam: normal color, warm, dry, No rash Lymphatic Exam: No adenopathy SpO2 Interpretation: normal SpO2: 96 O2 Delivery: Room Air - Course Nursing assessment & vital signs reviewed: Yes EKG Interpreted by Me: RATE (70), Sinus Rhythm (Atrial paced rhythm.), NORMAL AXIS, NORMAL INTERVALS - CT Exams Lumbar Spine CT Interpretation: Tele-radiologist Report (CT lumbar spine is stable. Multilevel vertebral hemangiomas and benign bilateral adrenal calcifications. No new acute findings.) Chest CT Interpretation: Tele-radiologist Report (No comps. Large hiatal hernia and multilevel degenerative spondylosis. Nothing acute.) Ordered Tests: Active Orders 24 hr Category Date Time Status CHEST WITHOUT CONTRAST [CT] Stat Exams 07/28/22 19:38 Taken LUMBAR SPINE W/O [CT] Stat Exams 07/28/22 19:38 Taken Medication Summary Discontinued Medications Generic Name Dose Route Start Last Admin Trade Name Iain PRN Reason Stop Dose Admin Acetaminophen 975 mg 07/28/22 19:39 07/28/22 19:46 Acetaminophen 325 Mg Tablet PO 07/28/22 19:40 975 mg STAT ONE Administration Acetaminophen Confirm 07/28/22 19:46 Acetaminophen 325 Mg Tablet Administered 07/28/22 19:47 Dose 975 mg .ROUTE .[employer] ONE - Progress Progress: improved Progress Note: Patient 61-year-old female presents to our ED for evaluation of chest wall and low back pain. Patient had a mechanical fall. CT chest CT lumbar spine are both negative for acute pathology. Patient comfortable at this point. EKG shows paced rhythm. No acute findings. Will discharge home. Patient agrees to follow-up with primary care doctor within 48 hours for reevaluation. Portions of this note were created with voice recognition technology. There may be grammatical, spelling, punctuation or sound alike errors Patient's presenting problem is acute. Complexity of problem addressed is acute uncomplicated. No critical care time. Complexity of data reviewed and analyzed is moderate. Dr. El independently reviewed the EKG. CT scan negative per Dr. Garces. Vital stable. Risk of complication and or risk morbidity/mortality of patient management is low. Patient received Tylenol for pain control. No other medical management rendered. Patient will be discharged home. Plan of care established via shared decision making. No social determinants of health to impede follow-up. Vital stable. Portions of this note were created with voice recognition technology. There may be grammatical, spelling, punctuation or sound alike errors 07/28/22 22:38 07/28/22 22:41 Counseled pt/family regarding: diagnosis, need for follow-up, rad results - Departure Departure Disposition: Home Clinical Impression: Fall, Lumbosacral strain, Chest wall muscle strain, Vertebral body hemangioma, Adrenal calcification, Large hiatal hernia, Arthritis Condition: Stable Critical Care Time: No Referrals: KUNAL CASON MD [Primary Care Provider] - Follow up/PCP as directed Additional Instructions: Discharge/Care Plan AMERICAKELLY SAE was seen on 07/28/22 in the Emergency Room. The patient was counseled regarding Diagnosis,Lab results, Imaging studies, need for follow up and when to return to the Emergency Room. Prescriptions given: Discharge Note I have spoken with the patient and/or caregivers. I have explained the patient's condition, diagnosis and treatment plan based on the information available to me at this time. I have answered the patient's and/or caregiver's questions and addressed any concerns. The patient and/or caregivers have as good understanding of the patient's diagnosis, condition and treatment plan as can be expected at this point. The vital signs have been stable. The patient's condition is stable and appropriate for discharge from the emergency department. The patient will pursue further outpatient evaluation with the primary care physician or other designated or consulting physician as outlined in the d ischarge instructions. The patient and/or caregivers are agreeable to this plan of care and follow-up instructions have been explained in detail. The patient and/or caregivers have received these instruction. The patient/and or caregivers are aware that any significant change in condition or worsening of symptoms should prompt an immediate return to this or the closest emergency department or call 911.
[2022-07-28 22:45] VITALS: BP 136/95
--- NOTE | 2022-07-29 08:40 | XRAY ---
Indication: Right-sided pain following fall. Multiple contiguous axial images obtained through the chest without contrast. Comparison: None Lungs demonstrate minimal bibasilar subsegmental atelectasis/scarring. No infiltrate, consolidation, effusion, or pneumothorax. Heart not enlarged with right AICD and left Port-A-Cath. Aorta is normal in course and caliber. A few tiny left hilar calcified nodes. No pathologic mediastinal lymphadenopathy. Moderate-sized hiatal hernia with partial intrathoracic stomach. Bony thorax intact with mild degenerative changes throughout the spine. Limited upper abdomen demonstrates gastric bypass surgery, cholecystectomy, splenic calcified granuloma, benign appearing bilateral adrenal macrocalcifications, and 1 cm nonobstructing right renal calculus. Impression: 1. Chronic findings including hiatal hernia with partial intrathoracic stomach, remote postsurgical changes, benign appearing bilateral adrenal macrocalcifications, nonobstructing right renal calculus, chronic bony findings, and old granulomatous disease. 2. Remaining CT chest without contrast exam is negative.
--- NOTE | 2022-07-29 08:44 | XRAY ---
Indication: Pain following fall. Multiple contiguous axial images obtained through the lumbar spine. Sagittal and coronal reformatted images obtained. Comparison: CT abdomen/pelvis July 31, 2016. Stable multilevel vertebral hemangiomas, again largest L1. Axial images negative for acute fracture, suspicious bony lesions, or spinal canal stenosis. Facets are symmetric. Stable bilateral SI joint degenerative changes. Sagittal and coronal reformatted images again demonstrates normal lumbar alignment with vertebral body heights/disc spaces maintained. No acute compression fracture or subluxation. Visualized noncontrasted soft tissues again demonstrates benign-appearing bilateral adrenal macrocalcifications and nonobstructing right renal calculus. Impression: 1. Negative acute fracture/subluxation. 2. Again chronic findings including multilevel vertebral hemangiomas, bilateral SI joint degenerative changes, benign appearing bilateral adrenal macrocalcifications, and nonobserved right renal calculus.
== END 2022-07-28 22:45 | disposition home or self-care (01) ==
LOC: ED 17:15
DX: S39.012A Strain of muscle, fascia and tendon of lower back, initial encounter (principal); S29.011A Strain of muscle and tendon of front wall of thorax, initial encounter; W01.0XXA Fall on same level from slipping, tripping and stumbling without subsequent striking against object, initial encounter; Y93.H2 Activity, gardening and landscaping; Y92.007 Garden or yard of unspecified non-institutional (private) residence as the place of occurrence of the external cause; D18.09 Hemangioma of other sites; E27.49 Other adrenocortical insufficiency; K44.9 Diaphragmatic hernia without obstruction or gangrene; M47.9 Spondylosis, unspecified; R11.10 Vomiting, unspecified; E11.9 Type 2 diabetes mellitus without complications; Z79.899 Other long term (current) drug therapy
CPT/HCPCS: 71250; 72131; 99283; A9270-GY